=== PATIENT | male | born 1965 ===

== ENCOUNTER 2022-08-12 04:25 | Day surgery (SDC) | payer OTHER ==
[2022-08-10 15:21] VITALS: BMI 26.6
[2022-08-12] MEDS ORDERED: PROPOFOL 20 ML ONE ×2 (10:54→12:40)
[2022-08-12] MEDS ORDERED: LACTATED RINGERS SOLUTION 1,000 ML IV SCH (11:00)
[2022-08-12] MEDS ORDERED: SEVOFLURANE 250 ML BTL ONE (11:02)
[2022-08-12] MEDS ORDERED: MIDAZOLAM HCL 2 MG/2 ML SINGLE DOSE VIAL ONE (11:12)
[2022-08-12] MEDS ORDERED: CLINDAMYCIN 600MG PREMIX IVPB 600 MG/50 ML BAG IVPB ONE (11:17)
[2022-08-12] MEDS ORDERED: SUCCINYLCHOLINE CHLORIDE 200 MG/10 ML SYRINGE ONE (11:19)
[2022-08-12] MEDS ORDERED: CLINDAMYCIN 600 MG PREMIX BAG IVPB ONE (11:50)
[2022-08-12] MEDS ORDERED: ONDANSETRON 4 MG/2 ML VIAL ONE (11:52)
[2022-08-12] MEDS ORDERED: DEXAMETHASONE SOD PHOSPHATE 4 MG/1 ML VIAL ONE (11:52)
[2022-08-12] MEDS ORDERED: BACITRACIN 15 GM TUBE TOPICAL OINTMENT TP ONE (12:00)
[2022-08-12] MEDS ORDERED: KETOROLAC TROMETHAMINE 30 MG/1 ML VIAL ONE (12:50)
[2022-08-12] MEDS ORDERED: KETAMINE HCL 200 MG/20 ML VIAL ONE (12:52)
[2022-08-12] MEDS ORDERED: LABETALOL HCL 5 MG/1 ML (100MG/20 ML VIAL) IVPUSH ONE (14:23)
[2022-08-12] MEDS ORDERED: LABETALOL HCL 5 MG/1 ML (100MG/20 ML VIAL) ONE (14:27)
[2022-08-12] MEDS ORDERED: oxyCODONE HCL 5 MG TABLET ONE (15:25)
[2022-08-12 16:29] VITALS: BP 152/77; PULSE 77; RESP 18; TEMP 98
== END 2022-08-12 16:25 ==
LOC: JASU-SURG 04:25
PROVIDERS: ATTEND Urology
PROC: 0V503ZZ Destruction of Prostate, Percutaneous Approach (ICD-10-PCS; principal; 2022-08-12 12:00)
DX: C61 Malignant neoplasm of prostate (principal)
CPT/HCPCS: 55873; C2618; 94760; C1769